=== PATIENT | female | born 1990 | race Caucasian/White ===

== ENCOUNTER 2018-03-29 03:10 | Emergency (ER) | payer OTHER ==
[~2018-03-29] VITALS: Ht 165.1 cm; Wt 68.1 kg
[2018-03-29 03:13] VITALS: TEMP 36.3; Ht 165.1 cm; Wt 68.1 kg
[2018-03-29] MEDS ORDERED: PROPARACAINE HCL 0.5% OP SOLN 15 ML BTL OP STA (03:19)
[2018-03-29] MEDS ORDERED: OXYCODONE/ACETAMINOPHEN 5-325 TAB PO STA ×2 (03:36→04:33)
[2018-03-29] MEDS ORDERED: DIPHTHERIA/TETANUS/PERTUSSIS 0.5 ML SYR/VIAL IM. ONE (03:45)
[2018-03-29] MEDS ORDERED: NICOTINE 21 MG/24 HR TDSY TD ONE (04:30)
[2018-03-29] MEDS ORDERED: MOXIFLOXACIN HCL 0.5% OP SOLN 3 ML BTL OPR ONE (04:45)
[2018-03-29] MEDS ORDERED: OXYCODONE IR HOME PACK PO ONE (04:45)
[2018-03-29] MEDS ORDERED: ARTIFICIAL TEARS OP SOLN OP ONE (04:45)
[2018-03-29] MEDS ORDERED: OXYC-737 PO (04:55)
[2018-03-29 05:15] VITALS: BP 140/80; PULSE 95; O2SAT 95
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
== END 2018-03-29 05:15 | disposition home or self-care (01) ==
LOC: C.EDB 03:12 → C.EDA 05:15
DX: T26.11XA Burn of cornea and conjunctival sac, right eye, initial encounter (principal); S05.8X1A Other injuries of right eye and orbit, initial encounter; Z23 Encounter for immunization; F17.200 Nicotine dependence, unspecified, uncomplicated; X19.XXXA Contact with other heat and hot substances, initial encounter